=== PATIENT | female | born 1935 | race Caucasian/White ===

== ENCOUNTER 2019-06-11 09:14 | Inpatient (IN) | payer OTHER, MEDICAID ==
[~2019-06-11] VITALS: Ht 162.6 cm; Wt 72.6 kg
[2019-06-11] MEDS ORDERED: FLUCONAZOLE 100MG TABLET PO ONE (11:15)
[2019-06-11 11:28] LABS: CLARITY URINE CLEAR (CLEAR); COLOR URINE YELLOW (YELLOW); KETONES URINE NEGATIVE (NEGATIVE); LEUKOCYTE ESTERASE URINE NEGATIVE (NEGATIVE); NITRITE URINE NEGATIVE (NEGATIVE); OCCULT BLOOD URINE TRACE (NEGATIVE); PROTEIN URINE 2+ (NEGATIVE); SPECIFIC GRAVITY URINE 1.011 (1.005-1.030); UROBILINOGEN URINE 0.2 E.U./dL (0.2-1.0)
[2019-06-11] MEDS ORDERED: FLUCONAZOLE 150MG TABLET PO NR (11:30)
[2019-06-11 11:41] LABS: BASOPHILS % 0.4 % (0.0-2.0); EOSINOPHILS % 0.6 % (0.0-5.0); HEMATOCRIT. 41.3 % (36.0-48.0); HEMOGLOBIN. 13.8 g/dL (12.0-16.0); LYMPHOCYTES % 9.2 % (20.0-50.0); MEAN CORPUSCULAR HEMOGLOBIN 31.4 pg (28.0-32.0); MEAN CORPUSCULAR VOLUME 93.7 fL (81.0-99.0); MEAN PLATELET VOLUME 7.4 fl (7.4-10.4); MONOCYTES % 3.8 % (2.0-8.0); PLATELET 210 x1000/uL (130-400); RED CELL DISTRIBUTION WIDTH 13.6 % (11.6-14.6)
[2019-06-11 11:50] LABS: PROTHROMBIN TIME 10.3 sec (9.6-11.0)
[2019-06-11 11:53] LABS: CHLORIDE 106 mEq/L (98-107)
[2019-06-11] MEDS ORDERED: CLINDAMYCIN 900 MG in DEXTROSE 5% WATER 50 ML IV ONE (15:30)
[2019-06-11] MEDS ORDERED: CLINDAMYCIN 900 MG PREMIX 50 ML IV SCH (16:00)
[2019-06-11] MEDS ORDERED: LIDOCAINE HCL/EPINEPHRINE 1%-EPI 1:100,000 20 ML VIAL INFIL ONE (16:30)
[2019-06-11] MEDS ORDERED: ACETAMINOPHEN 325MG TABLET PO PRN (17:00)
[2019-06-11] MEDS ORDERED: DIPHENHYDRAMINE 50MG/ML VIAL IV PRN (17:00)
[2019-06-11] MEDS ORDERED: DOCUSATE SODIUM 100MG CAPSULE PO PRN (17:00)
[2019-06-11] MEDS ORDERED: GUAIFENESIN 200MG/10ML SUGAR FREE UDC PO PRN (17:00)
[2019-06-11] MEDS ORDERED: CLONIDINE 0.1MG TABLET PO PRN (17:00)
[2019-06-11] MEDS ORDERED: NA PHOS,M-B/NA PHOS,DI-BA ENEMA 118ML PR PRN (17:00)
[2019-06-11] MEDS ORDERED: MAGNESIUM/ALUMINUM HYDROXIDE/SIMETHICONE 30ML UDC PO PRN (17:00)
[2019-06-11] MEDS ORDERED: ACETAMINOPHEN 650MG SUPP PR PRN (17:00)
[2019-06-11] MEDS ORDERED: DEXTROSE 50% WATER 50ML SYRINGE IV PRN (17:00)
[2019-06-11] MEDS ORDERED: LORAZEPAM 0.5MG TABLET PO PRN (17:00)
[2019-06-11] MEDS ORDERED: ONDANSETRON HCL 4MG/2ML INJ IV PRN (17:00)
[2019-06-11] MEDS ORDERED: IPRATROPIUM/ALBUTEROL 0.5-3(2.5)MG/3ML NEB NEB PRN (17:00)
[2019-06-11] MEDS ORDERED: FLUORESCEIN SODIUM 1MG/STRIP LEFTEYE ONE (17:00)
[2019-06-12 00:32] VITALS: BP 114/54
[2019-06-12] MEDS ORDERED: SODIUM CHLORIDE 0.45% 1,000 ML IV SCH (01:30)
[2019-06-12] MEDS ORDERED: LEVOFLOXACIN 500MG PREMIX 100 ML IV NR (02:00)
[2019-06-12] MEDS: HYDROCODONE/ACETAMINOPHEN 5/325MG TABLET PO PRN ×2 (02:50→09:08)
[2019-06-12] MEDS ORDERED: LOSA1TAB34 MT (03:11)
[2019-06-12] MEDS ORDERED: MELA5TAB3 MT (03:11)
[2019-06-12] MEDS ORDERED: TRAZ-251 MT (03:11)
[2019-06-12] MEDS ORDERED: DONE10TA43 MT (03:11)
[2019-06-12] MEDS ORDERED: AMLO5TAB4 MT (03:11)
[2019-06-12] MEDS ORDERED: INSU100I24 SQ (03:11)
[2019-06-12] MEDS ORDERED: GABA-531 MT (03:11)
[2019-06-12] MEDS ORDERED: ATOR10TA69 MT (03:11)
[2019-06-12] MEDS ORDERED: CYCL30DR EACHEYE (03:11)
[2019-06-12] MEDS ORDERED: METO-385 MT (03:11)
[2019-06-12] MEDS ORDERED: OMEP40CA34 MT (03:11)
[2019-06-12] MEDS ORDERED: HYDR-4134 MT (03:11)
[2019-06-12] MEDS ORDERED: DICY10CA88 MT (03:11)
[2019-06-12 04:00] VITALS: BP 155/53
[2019-06-12] MEDS ORDERED: VANCOMYCIN 1 G PREMIX 200 ML IV NR (06:00)
[2019-06-12] MEDS: INSULIN LISPRO 100 UNITS/ML SUBCUT SCH ×3 (06:35→17:56)
[2019-06-12] MEDS: BLOOD SUGAR DIAGNOSTIC STRIP TEST SCH ×3 (06:35→17:40)
[2019-06-12 07:20] LABS: BASOPHILS % 0.7 % (0.0-2.0); EOSINOPHILS % 3.2 % (0.0-5.0); HEMATOCRIT. 39.9 % (36.0-48.0); LYMPHOCYTES % 18.8 % (20.0-50.0); MEAN CORPUSCULAR HEMOGLOBIN 30.5 pg (28.0-32.0); MEAN CORPUSCULAR VOLUME 93.5 fL (81.0-99.0); MEAN PLATELET VOLUME 7.7 fl (7.4-10.4); MONOCYTES % 9.1 % (2.0-8.0); NEUTROPHILS % 68.2 % (40.0-76.0); PLATELET 199 x1000/uL (130-400); RED BLOOD CELL COUNT 4.27 mill/uL (4.2-5.4); RED CELL DISTRIBUTION WIDTH 13.8 % (11.6-14.6)
[2019-06-12 07:44] LABS: CHLORIDE 110 mEq/L (98-107)
[2019-06-12 07:57] LABS: LDL CHOLESTEROL 103 mg/dL (5-100)
[2019-06-12 07:58] LABS: HDL CHOLESTEROL 42 mg/dL (40-59); T4 FREE 1.03 ng/dL (0.76-1.46)
[2019-06-12 08:00] VITALS: BP 139/61
[2019-06-12] MEDS: TOBRAMYCIN 0.3% OPHTH DROPS 5ML LEFTEYE SCH ×3 (08:56→17:00)
[2019-06-12] MEDS ORDERED: AMLODIPINE 5MG TABLET PO SCH (09:00)
[2019-06-12] MEDS ORDERED: ENOXAPARIN 40MG/0.4ML SYR SUBCUT SCH (09:00)
[2019-06-12 12:00] VITALS: BP 155/58
[2019-06-12] MEDS ORDERED: LORAZEPAM 2MG/ML CPJ IV PRN (14:00)
[2019-06-12 16:05] VITALS: BP 157/66
[2019-06-12 17:54] VITALS: BP 132/78
[2019-06-12] MEDS ORDERED: FAMOTIDINE 20MG TABLET PO SCH (21:00)
[2019-06-12] MEDS ORDERED: LEVOFLOXACIN 250MG PREMIX 50 ML IV SCH (23:00)
[2019-06-13] MEDS ORDERED: VANCOMYCIN 750 MG PREMIX 150 ML IV SCH (02:00)
== END 2019-06-12 18:40 | disposition home or self-care (01) | DRG 746 ==
LOC: ER 09:14 → 7WST 15:25 → SUPCPDRO 15:28 → EDBEDREQ 15:33 → EDBEDREQSVC 15:33 → ENRESERV 19:54 → CANRESERV 19:54 → EDBEDREQSVC 21:00 → ENRESERV 22:20
PROVIDERS: ADMIT Internal Medicine; ATTEND Internal Medicine
PROC: 0U9MXZZ Drainage of Vulva, External Approach (ICD-10-PCS; principal; 2019-06-11)
DX: N76.4 Abscess of vulva (principal); N39.0 Urinary tract infection, site not specified; L02.215 Cutaneous abscess of perineum; Z95.0 Presence of cardiac pacemaker; I11.9 Hypertensive heart disease without heart failure; H10.9 Unspecified conjunctivitis; F03.90 Unspecified dementia, unspecified severity, without behavioral disturbance, psychotic disturbance, mood disturbance, and anxiety; E11.65 Type 2 diabetes mellitus with hyperglycemia; N76.2 Acute vulvitis; Z79.899 Other long term (current) drug therapy; Z88.2 Allergy status to sulfonamides; G90.8 Other disorders of autonomic nervous system
CPT/HCPCS: 36415; 71045; 80061; 81003; 82962; 83036; 83880; 84439; 84443; 84484; 93005; 93306; 93880; 93970; 99285; C1893; J1200; J1650; J1956; J3370; J3490; J7060

== ENCOUNTER 2022-05-07 03:05 | Inpatient (IN) | payer OTHER, MEDICAID ==
[~2022-05-07] VITALS: Ht 154.9 cm; Wt 52.2 kg
[~2022-05-07 03:05] MED LIST: AMLO5TAB4 MT; ATOR10TA69 MT; CYCL30DR EACHEYE; DICY10CA88 MT; DONE10TA43 MT; GABA-532 MT; HYDR-4134 MT; INSU100I24 SQ; LOSA1TAB34 MT; MELA5TAB3 MT; METO-385 MT; OMEP40CA20 MT; TRAZ-251 MT
[2022-05-07] MEDS ORDERED: ONDANSETRON HCL 4MG/2ML INJ IV STA (03:14)
[2022-05-07] MEDS ORDERED: MORPHINE SULFATE 4 MG/ML CPJ (NOT FOR IM USE) IV STA (03:14)
[2022-05-07] MEDS ORDERED: SODIUM CHLORIDE 0.9% 1,000 ML IV ONE (03:15)
[2022-05-07 04:10] LABS: BASOPHILS % 0.6 % (0.0-2.0); EOSINOPHILS % 1.6 % (0.0-5.0); HEMATOCRIT. 42.1 % (36.0-48.0); HEMOGLOBIN. 13.8 g/dL (12.0-16.0); LYMPHOCYTES % 15.3 % (20.0-50.0); MEAN CORPUSCULAR HEMOGLOBIN 30.7 pg (28.0-32.0); MEAN CORPUSCULAR VOLUME 94.2 fL (81.0-99.0); MONOCYTES % 3.6 % (2.0-8.0); NEUTROPHILS % 78.9 % (40.0-76.0); PLATELET 202 x1000/uL (130-400); RED BLOOD CELL COUNT 4.47 mill/uL (4.2-5.4); RED CELL DISTRIBUTION WIDTH 13.8 % (11.6-14.6)
[2022-05-07 04:16] LABS: CHLORIDE 107 mEq/L (98-107)
[2022-05-07 04:44] LABS: CLARITY URINE CLEAR (CLEAR); COLOR URINE YELLOW (YELLOW); KETONES URINE NEGATIVE (NEGATIVE); LEUKOCYTE ESTERASE URINE NEGATIVE (NEGATIVE); NITRITE URINE NEGATIVE (NEGATIVE); OCCULT BLOOD URINE NEGATIVE (NEGATIVE); PROTEIN URINE 1+ (NEGATIVE); SPECIFIC GRAVITY URINE 1.006 (1.005-1.030); UROBILINOGEN URINE 0.2 E.U./dL (0.2-1.0)
[2022-05-07] MEDS ORDERED: CEFTRIAXONE 1 G PREMIX 50 ML IV ONE (04:45)
[2022-05-07] MEDS ORDERED: ONDANSETRON HCL 4MG/2ML INJ IV NR (05:15)
[2022-05-07] MEDS ORDERED: MORPHINE SULFATE 4 MG/ML CPJ (NOT FOR IM USE) IV NR (05:15)
[2022-05-07] MEDS ORDERED: ONDANSETRON HCL 4MG/2ML INJ IV PRN (14:15)
[2022-05-07] MEDS ORDERED: ENOXAPARIN 40MG/0.4ML SYR SUBCUT SCH (14:15)
[2022-05-07] MEDS ORDERED: ACETAMINOPHEN 325MG TABLET PO PRN (14:15)
[2022-05-07] MEDS: INSULIN LISPRO 100 UNITS/ML SUBCUT SCH ×3 (14:30→21:00)
[2022-05-07] MEDS ORDERED: DEXTROSE 50% WATER 50ML SYRINGE IV PRN (14:30)
[2022-05-07] MEDS ORDERED: MAGNESIUM/ALUMINUM HYDROXIDE/SIMETHICONE 30ML UDC PO NR (14:45)
[2022-05-07] MEDS: BLOOD SUGAR DIAGNOSTIC STRIP TEST SCH ×3 (15:23→21:00)
[2022-05-07] MEDS ORDERED: DICYCLOMINE 10 MG/5 ML ORAL SYR PO NR (15:45)
[2022-05-07] MEDS ORDERED: VISCOUS LIDOCAINE 2% 15 ML UDC MM NR (15:45)
[2022-05-07] MEDS: DEXT 5%/0.45% NACL 1000ML 1,000 ML IV SCH (15:49)
[2022-05-07] MEDS: PANTOPRAZOLE SODIUM 40 MG/VIAL IV SCH (15:49)
[2022-05-07] MEDS: ENOXAPARIN 30MG/0.3ML SYR SUBCUT SCH (15:49)
[2022-05-07] MEDS: CLONIDINE 0.1MG TABLET PO PRN (15:54)
[2022-05-07] MEDS: GABAPENTIN 300MG CAPSULE PO SCH (17:50)
[2022-05-07] MEDS: ATORVASTATIN CALCIUM 10MG TABLET PO SCH (21:00)
[2022-05-07] MEDS: INSULIN GLARGINE 100 UNITS/ML SUBCUT SCH (22:24)
[2022-05-07 23:30] VITALS: BP 166/52
[2022-05-08 04:00] VITALS: BP 173/51
[2022-05-08] MEDS: DEXT 5%/0.45% NACL 1000ML 1,000 ML IV SCH ×2 (04:19→17:10)
[2022-05-08] MEDS: CLONIDINE 0.1MG TABLET PO PRN (05:05)
[2022-05-08 06:00] VITALS: BP 115/50
[2022-05-08] MEDS: BLOOD SUGAR DIAGNOSTIC STRIP TEST SCH ×4 (07:19→21:00)
[2022-05-08 07:46] LABS: BASOPHILS % 0.6 % (0.0-2.0); EOSINOPHILS % 4.1 % (0.0-5.0); HEMATOCRIT. 39.5 % (36.0-48.0); HEMOGLOBIN. 12.6 g/dL (12.0-16.0); LYMPHOCYTES % 26.9 % (20.0-50.0); MEAN CORPUSCULAR HEMOGLOBIN 31.4 pg (28.0-32.0); MEAN CORPUSCULAR VOLUME 98.8 fL (81.0-99.0); MEAN PLATELET VOLUME 7.5 fl (7.4-10.4); MONOCYTES % 8.8 % (2.0-8.0); NEUTROPHILS % 59.6 % (40.0-76.0); PLATELET 156 x1000/uL (130-400); RED BLOOD CELL COUNT 3.99 mill/uL (4.2-5.4); RED CELL DISTRIBUTION WIDTH 14.4 % (11.6-14.6)
[2022-05-08 08:00] VITALS: BP 127/47
[2022-05-08] MEDS ORDERED: DONEPEZIL HCL 10MG TABLET PO SCH (09:00)
[2022-05-08] MEDS: PANTOPRAZOLE SODIUM 40 MG/VIAL IV SCH (09:05)
[2022-05-08] MEDS: DONEPEZIL HCL 5MG TABLET PO SCH (09:06)
[2022-05-08] MEDS: METOPROLOL SUCCINATE 50MG ER TABLET PO SCH (09:07)
[2022-05-08] MEDS: TRAZODONE HCL 50MG TABLET PO SCH (09:12)
[2022-05-08] MEDS: LOSARTAN POTASSIUM 50 MG TABLET PO SCH (09:13)
[2022-05-08] MEDS: GABAPENTIN 300MG CAPSULE PO SCH ×3 (09:13→17:10)
[2022-05-08] MEDS: AMLODIPINE 5MG TABLET PO SCH (09:13)
[2022-05-08] MEDS: HYDRALAZINE HCL 25MG TABLET PO SCH (09:14)
[2022-05-08] MEDS: INSULIN LISPRO 100 UNITS/ML SUBCUT SCH ×4 (09:24→21:00)
[2022-05-08] MEDS: ENOXAPARIN 30MG/0.3ML SYR SUBCUT SCH (15:53)
[2022-05-08 16:00] VITALS: BP 171/57
[2022-05-08 20:00] VITALS: BP 125/49
[2022-05-08] MEDS: ATORVASTATIN CALCIUM 10MG TABLET PO SCH (21:40)
[2022-05-08] MEDS: INSULIN GLARGINE 100 UNITS/ML SUBCUT SCH (22:00)
[2022-05-09] VITALS: BP 128/50
[2022-05-09 04:00] VITALS: BP 126/54
[2022-05-09] MEDS: DEXT 5%/0.45% NACL 1000ML 1,000 ML IV SCH ×2 (06:44→20:50)
[2022-05-09] MEDS: INSULIN LISPRO 100 UNITS/ML SUBCUT SCH ×4 (06:44→20:51)
[2022-05-09] MEDS: BLOOD SUGAR DIAGNOSTIC STRIP TEST SCH ×4 (06:44→20:51)
[2022-05-09 08:21] LABS: BASOPHILS % 0.5 % (0.0-2.0); EOSINOPHILS % 5.2 % (0.0-5.0); HEMATOCRIT. 42.8 % (36.0-48.0); HEMOGLOBIN. 13.3 g/dL (12.0-16.0); LYMPHOCYTES % 28.4 % (20.0-50.0); MEAN CORPUSCULAR HEMOGLOBIN 31.6 pg (28.0-32.0); MEAN CORPUSCULAR VOLUME 101.6 fL (81.0-99.0); MEAN PLATELET VOLUME 7.6 fl (7.4-10.4); MONOCYTES % 6.9 % (2.0-8.0); PLATELET 157 x1000/uL (130-400); RED BLOOD CELL COUNT 4.22 mill/uL (4.2-5.4); RED CELL DISTRIBUTION WIDTH 14.9 % (11.6-14.6)
[2022-05-09 08:57] LABS: CHLORIDE 108 mEq/L (98-107)
[2022-05-09] MEDS: GABAPENTIN 300MG CAPSULE PO SCH ×3 (08:57→18:15)
[2022-05-09] MEDS: PANTOPRAZOLE SODIUM 40 MG/VIAL IV SCH (08:58)
[2022-05-09] MEDS: AMLODIPINE 5MG TABLET PO SCH (08:58)
[2022-05-09] MEDS: DONEPEZIL HCL 5MG TABLET PO SCH (08:59)
[2022-05-09] MEDS: LOSARTAN POTASSIUM 50 MG TABLET PO SCH (08:59)
[2022-05-09] MEDS: METOPROLOL SUCCINATE 50MG ER TABLET PO SCH (08:59)
[2022-05-09] MEDS: TRAZODONE HCL 50MG TABLET PO SCH (09:00)
[2022-05-09] MEDS: HYDRALAZINE HCL 25MG TABLET PO SCH (09:00)
[2022-05-09 12:00] VITALS: BP 116/53
[2022-05-09] MEDS: ENOXAPARIN 30MG/0.3ML SYR SUBCUT SCH (13:20)
[2022-05-09 16:00] VITALS: BP 132/66
[2022-05-09 20:00] VITALS: BP 98/35
[2022-05-09] MEDS: ATORVASTATIN CALCIUM 10MG TABLET PO SCH (20:50)
[2022-05-09] MEDS: INSULIN GLARGINE 100 UNITS/ML SUBCUT SCH (20:51)
[2022-05-10] VITALS: BP 128/45
[2022-05-10 04:00] VITALS: BP 135/52
[2022-05-10] MEDS: BLOOD SUGAR DIAGNOSTIC STRIP TEST SCH ×2 (07:05→12:20)
[2022-05-10] MEDS: INSULIN LISPRO 100 UNITS/ML SUBCUT SCH ×2 (07:05→12:33)
[2022-05-10 08:00] VITALS: BP 138/46
[2022-05-10] MEDS: GABAPENTIN 300MG CAPSULE PO SCH (08:36)
[2022-05-10] MEDS: HYDRALAZINE HCL 25MG TABLET PO SCH (08:36)
[2022-05-10] MEDS: TRAZODONE HCL 50MG TABLET PO SCH (08:37)
[2022-05-10] MEDS: LOSARTAN POTASSIUM 50 MG TABLET PO SCH (08:37)
[2022-05-10] MEDS: DONEPEZIL HCL 5MG TABLET PO SCH (08:37)
[2022-05-10] MEDS: PANTOPRAZOLE SODIUM 40 MG/VIAL IV SCH (08:44)
[2022-05-10 10:32] VITALS: BP 138/46
[2022-05-10 13:01] LABS: BASOPHILS % 0.6 % (0.0-2.0); EOSINOPHILS % 4.6 % (0.0-5.0); HEMATOCRIT. 40.1 % (36.0-48.0); HEMOGLOBIN. 13.3 g/dL (12.0-16.0); LYMPHOCYTES % 30.6 % (20.0-50.0); MEAN CORPUSCULAR HEMOGLOBIN 31.4 pg (28.0-32.0); MEAN CORPUSCULAR VOLUME 94.9 fL (81.0-99.0); MEAN PLATELET VOLUME 7.5 fl (7.4-10.4); MONOCYTES % 8.1 % (2.0-8.0); NEUTROPHILS % 56.1 % (40.0-76.0); PLATELET 180 x1000/uL (130-400); RED BLOOD CELL COUNT 4.23 mill/uL (4.2-5.4); RED CELL DISTRIBUTION WIDTH 13.7 % (11.6-14.6)
== END 2022-05-10 14:46 | disposition home or self-care (01) | DRG 392 ==
LOC: ER 03:38 → 6EST 06:57 → EDBEDREQSVC 15:16 → ENRESERV 21:04
PROVIDERS: ADMIT Internal Medicine; ATTEND Internal Medicine
DX: K29.70 Gastritis, unspecified, without bleeding (principal); E11.9 Type 2 diabetes mellitus without complications; I11.9 Hypertensive heart disease without heart failure; K57.30 Diverticulosis of large intestine without perforation or abscess without bleeding; I25.10 Atherosclerotic heart disease of native coronary artery without angina pectoris; Z95.0 Presence of cardiac pacemaker; Z90.710 Acquired absence of both cervix and uterus; Z88.2 Allergy status to sulfonamides; Z79.899 Other long term (current) drug therapy
CPT/HCPCS: 36415; 71045; 74176; 76700; 80048; 80053; 81003; 82962; 83605; 85025; 87015; 87045; 87427; 87449; 89055; 93005; 99285; C1893; C9113; J0696; J1650; J1815; J2270; J7030